=== PATIENT | female | born 1990 | race Caucasian/White ===

== ENCOUNTER 2018-01-25 01:57 | Inpatient (IN) | payer OTHER ==
[~2018-01-25] VITALS: Ht 157.5 cm; Wt 77.1 kg
[2018-01-25] MEDS ORDERED: FERR-15 PO (08:24)
[2018-01-25] MEDS ORDERED: PREN-380 PO (08:24)
[2018-01-25] MEDS ORDERED: CITRIC ACID/SODIUM CITRATE 30 ML UDC PO ONE (08:25)
--- NOTE | 2018-01-25 08:26 | NUR ---
PATIENT HAS BEEN SCREENED AND CATEGORIZED LOW NUTRITION RISK. PATIENT WILL BE SEEN WITHIN 7 DAYS OF ADMISSION. 01/31/[address]
[2018-01-25] MEDS: LACTATED RINGERS 1,000 ML IV SCH (09:05)
[2018-01-25 09:29] LABS: BASOPHILS % (AUTO) 0.4 % (0.0-2.0); EOSINOPHILS # (AUTO) 0.1 K/uL (0-0.4); EOSINOPHILS % (AUTO) 0.8 % (0.0-4.0); HEMATOCRIT 37.8 % (36-48); HEMOGLOBIN 12.5 g/dL (12.0-16.0); LYMPHOCYTES # (AUTO) 1.8 K/uL (2.5-16.5); LYMPHOCYTES % (AUTO) 19.5 % (20.5-51.1); MEAN CORPUSCULAR HEMOGLOBIN 29 pg (27-31); MEAN CORPUSCULAR HGB CONC 33 g/dL (33-37); MEAN CORPUSCULAR VOLUME 87.2 fL (80-94); MONOCYTES # (AUTO) 0.7 K/uL (0.8-1.0); MONOCYTES % (AUTO) 7.2 % (1.7-9.3); NEUTROPHILS # (AUTO) 6.7 K/uL (1.8-7.7); NEUTROPHILS % (AUTO) 72.1 % (42.2-75.2); PLATELET COUNT (AUTO) 201 K/uL (140-450); RED BLOOD CELL COUNT(AUTO) 4.33 MIL/uL (4.20-5.40); RED CELL DISTRIBUTION WIDTH 14.1 % (11.6-13.7); WHITE BLOOD COUNT (AUTO) 9.3 K/uL (4.8-10.8)
[2018-01-25 09:42] VITALS: BP 110/61
[2018-01-25] MEDS ORDERED: CITRIC ACID/SODIUM CITRATE 30 ML UDC ONE (10:22)
[2018-01-25] MEDS ORDERED: ePHEDrine 50 MG/ML VIAL IV ONE (10:28)
[2018-01-25] MEDS ORDERED: fentaNYL 0.05 MG/ML VIAL ONE (10:38)
[2018-01-25] MEDS ORDERED: MORPHINE PRES FREE 2 MG/2 ML 2 mL UD SYRINGE ONE (10:44)
[2018-01-25 11:11] LABS: APPEARANCE,URINE TURBID (CLEAR); BLOOD, URINE TRACE (NEGATIVE); COLOR,URINE YELLOW (YELLOW); UGLUCOSE NEGATIVE (NEGATIVE)
[2018-01-25 11:12] LABS: BILIRUBIN,URINE NEGATIVE (NEGATIVE); NITRITE, URINE NEGATIVE (NEGATIVE)
[2018-01-25] MEDS ORDERED: NALOXONE 0.4 MG/ML VIAL IVP PRN ×3 (11:15)
[2018-01-25] MEDS ORDERED: NALBUPHINE 10 MG/ML AMP IVP PRN (11:15)
[2018-01-25] MEDS ORDERED: ONDANSETRON 4 MG/2 ML VIAL IVP PRN ×2 (11:15)
[2018-01-25] MEDS ORDERED: KETOROLAC 60 MG/2 ML VIAL IM PRN (11:15)
[2018-01-25] MEDS ORDERED: diphenhydrAMINE 50 MG/ML VIAL IVP PRN (11:15)
[2018-01-25] MEDS ORDERED: KETOROLAC 30 MG/ML VIAL IVP PRN ×2 (11:25→13:40)
[2018-01-25 12:48] LABS: RBC,URINE 0-5 (RARE) /HPF (0-5)
[2018-01-25 12:49] LABS: WBC,URINE 6-15 (FEW) /HPF (0-5)
[2018-01-25 12:50] LABS: YEAST,URINE Few /HPF (None Seen)
[2018-01-25 12:51] LABS: LEUKOCYTE ESTERASE ,URINE 2+ (NEGATIVE); URINE AMORPHOUS URATE 1+ /HPF (None Seen)
[2018-01-25] MEDS ORDERED: OXYTOCIN 20 UNITS/LR PREMIX 1,000 ML IV ONE ×2 (13:00→18:46)
[2018-01-25] MEDS ORDERED: ONDANSETRON 4 MG/2 ML VIAL ONE (13:23)
[2018-01-25] MEDS ORDERED: OXYTOCIN 20 UNITS in LACTATED RINGERS 1,000 ML IV SCH (13:39)
[2018-01-25] MEDS ORDERED: MEASLES, MUMPS, AND RUBELLA 1 VIAL SQVAC PRN (13:40)
[2018-01-26] MEDS ORDERED: OXYTOCIN 20 UNITS/LR PREMIX 1,000 ML IV ONE (01:22)
[2018-01-26] MEDS ORDERED: HYDROmorphone 1 MG/ML AMP IVP PRN (05:00)
[2018-01-26] MEDS: KETOROLAC 30 MG/ML VIAL IVP PRN ×3 (05:06→22:15)
[2018-01-26 12:10] LABS: BASOPHILS # (AUTO) 0.1 K/uL (0.00-0.22); EOSINOPHILS # (AUTO) 0.1 K/uL (0-0.4); EOSINOPHILS % (AUTO) 0.9 % (0.0-4.0); LYMPHOCYTES % (AUTO) 7.8 % (20.5-51.1); MEAN CORPUSCULAR HEMOGLOBIN 29 pg (27-31); MEAN CORPUSCULAR HGB CONC 33 g/dL (33-37); MEAN CORPUSCULAR VOLUME 87.4 fL (80-94); MONOCYTES # (AUTO) 0.5 K/uL (0.8-1.0); MONOCYTES % (AUTO) 4.3 % (1.7-9.3); NEUTROPHILS # (AUTO) 10.7 K/uL (1.8-7.7); PLATELET COUNT (AUTO) 174 K/uL (140-450); RED BLOOD CELL COUNT(AUTO) 3.43 MIL/uL (4.20-5.40); RED CELL DISTRIBUTION WIDTH 14.3 % (11.6-13.7); WHITE BLOOD COUNT (AUTO) 12.4 K/uL (4.8-10.8)
[2018-01-26] MEDS ORDERED: ACETAMINOPHEN 325 MG TAB PO PRN (22:00)
[2018-01-27] MEDS ORDERED: INFLUENZA VIRUS VACCINE QUAD 0.5 ML SYR IMVAC PRN (05:00)
[2018-01-27] MEDS ORDERED: SODIUM PHOSPHATE 118 ML ENEM RC PRN (08:00)
[2018-01-27] MEDS ORDERED: oxyCODONE/APAP 5/325 MG 1 TAB TAB PO PRN (08:00)
[2018-01-27] MEDS: BISACODYL 5 MG TABEC PO SCH (09:04)
[2018-01-27] MEDS: DOCUSATE SODIUM 100 MG GELCAP PO SCH (09:04)
[2018-01-27] MEDS: SIMETHICONE 80 MG TAB.CHEW PO SCH ×3 (09:04→17:21)
[2018-01-27] MEDS: IBUPROFEN 600 MG TAB PO PRN ×2 (09:04→17:22)
[2018-01-28] MEDS: DOCUSATE SODIUM 100 MG GELCAP PO SCH (09:21)
[2018-01-28] MEDS: BISACODYL 5 MG TABEC PO SCH (09:21)
[2018-01-28] MEDS: SIMETHICONE 80 MG TAB.CHEW PO SCH (09:21)
[2018-01-28] MEDS: IBUPROFEN 600 MG TAB PO PRN ×2 (09:22→20:42)
[2018-01-28] MEDS: LACTATED RINGERS 1,000 ML IV SCH (16:48)
[2018-01-29] MEDS: DOCUSATE SODIUM 100 MG GELCAP PO SCH (08:51)
[2018-01-29] MEDS: IBUPROFEN 600 MG TAB PO PRN (08:51)
[2018-01-29] MEDS: SIMETHICONE 80 MG TAB.CHEW PO SCH (08:52)
[2018-01-29] MEDS: BISACODYL 5 MG TABEC PO SCH (08:52)
== END 2018-01-29 15:15 | disposition home or self-care (01) | DRG 540 ==
LOC: MLD 07:58 → MFCC 10:40
PROVIDERS: ADMIT Obstetrics & Gynecology; ATTEND Obstetrics & Gynecology
PROC: 10D00Z1 Extraction of Products of Conception, Low, Open Approach (ICD-10-PCS; principal; 2018-01-25 10:30)
PROC: 3E0234Z Introduction of Serum, Toxoid and Vaccine into Muscle, Percutaneous Approach (ICD-10-PCS; 2018-01-27)
PROC: 3E02340 Introduction of Influenza Vaccine into Muscle, Percutaneous Approach (ICD-10-PCS; 2018-01-27)
DX: O34.211 Maternal care for low transverse scar from previous cesarean delivery (principal); Z23 Encounter for immunization; Z37.0 Single live birth; Z3A.39 39 weeks gestation of pregnancy
CPT/HCPCS: 36415; 51702; 81001; 85025; 86592; 86886; 86900; 86901; 87081; 87086; 90658; 90715; J0690; J1200; J1885; J2270; J2405; J2590; J3010; J7060; J7120

== ENCOUNTER 2019-01-31 07:20 | Inpatient (IN) | payer OTHER ==
[~2019-01-31] VITALS: Ht 165.1 cm; Wt 75.7 kg
[~2019-01-31 07:20] MED LIST: FERR-15 PO; PREN-380 PO
[2019-01-31] MEDS ORDERED: LACTATED RINGERS 1,000 ML IV SCH (07:45)
--- NOTE | 2019-01-31 08:17 | NUR ---
PATIENT HAS BEEN SCREENED AND CATEGORIZED LOW NUTRITION RISK. PATIENT WILL BE SEEN WITHIN 7 DAYS OF ADMISSION. 02/06/[address]
[2019-01-31 09:00] LABS: BASOPHILS % (AUTO) 0.3 % (0.0-2.0); EOSINOPHILS # (AUTO) 0.2 K/uL (0-0.4); EOSINOPHILS % (AUTO) 1.8 % (0.0-4.0); HEMATOCRIT 38.1 % (36-48); HEMOGLOBIN 12.7 g/dL (12.0-16.0); LYMPHOCYTES # (AUTO) 1.9 K/uL (2.5-16.5); LYMPHOCYTES % (AUTO) 21.9 % (20.5-51.1); MEAN CORPUSCULAR HEMOGLOBIN 29 pg (27-31); MEAN CORPUSCULAR HGB CONC 34 g/dL (33-37); NEUTROPHILS # (AUTO) 5.8 K/uL (1.8-7.7); PLATELET COUNT (AUTO) 166 K/uL (140-450); RED BLOOD CELL COUNT(AUTO) 4.38 MIL/uL (4.20-5.40); RED CELL DISTRIBUTION WIDTH 15.1 % (11.6-13.7); WHITE BLOOD COUNT (AUTO) 8.9 K/uL (4.8-10.8)
[2019-01-31 09:27] LABS: APPEARANCE,URINE CLEAR (CLEAR); BILIRUBIN,URINE NEGATIVE (NEGATIVE); BLOOD, URINE NEGATIVE (NEGATIVE); COLOR,URINE YELLOW (YELLOW); LEUKOCYTE ESTERASE ,URINE NEGATIVE (NEGATIVE); NITRITE, URINE POSITIVE (NEGATIVE); UGLUCOSE NEGATIVE (NEGATIVE)
[2019-01-31 09:41] LABS: RBC,URINE 0-5 /HPF (0-5); WBC,URINE 0-5 /HPF (0-5)
[2019-01-31] MEDS ORDERED: INFLUENZA VACCINE QUAD 0.5 ML SYR IMVAC PRN (09:50)
[2019-01-31 10:52] VITALS: BP 109/71
[2019-01-31] MEDS ORDERED: MEPERIDINE 25 MG/ML SYR IVP PRN (11:05)
[2019-01-31] MEDS ORDERED: NALOXONE 0.4 MG/ML VIAL IVP PRN ×3 (11:05)
[2019-01-31] MEDS ORDERED: OXYTOCIN 20 UNITS in LACTATED RINGERS 1,000 ML IV SCH (11:05)
[2019-01-31] MEDS ORDERED: HYDROmorphone 1 MG/ML AMP IVP PRN ×2 (11:05→13:45)
[2019-01-31] MEDS ORDERED: NALBUPHINE 10 MG/ML AMP IVP PRN (11:05)
[2019-01-31] MEDS ORDERED: diphenhydrAMINE 50 MG/ML VIAL IVP PRN ×2 (11:05)
[2019-01-31] MEDS ORDERED: ONDANSETRON 4 MG/2 ML VIAL IVP PRN ×2 (11:05)
[2019-01-31] MEDS ORDERED: MEASLES, MUMPS, AND RUBELLA 1 VIAL SQVAC PRN (13:45)
[2019-01-31] MEDS ORDERED: KETOROLAC 30 MG/ML VIAL IVP PRN (13:45)
[2019-01-31] MEDS: OXYTOCIN 20 UNITS in LACTATED RINGERS 1,000 ML IV SCH (19:49)
--- NOTE | 2019-01-31 21:42 | NUR ---
2100 INSTRUCTED INCENTIVE SPIROMETER TO PATIENT. PT DID 1000CC X 10 BREATHS. ENCOURAGED HER TO DO IT EVERY HOUR WHILE SHE IS AWAKE
[2019-02-01] MEDS: KETOROLAC 30 MG/ML VIAL IM/IVP SCH ×2 (00:04→11:12)
[2019-02-01] MEDS ORDERED: OXYTOCIN 20 UNITS/LR PREMIX 1,000 ML IV ONE (02:25)
[2019-02-01] MEDS: OXYTOCIN 20 UNITS in LACTATED RINGERS 1,000 ML IV SCH (03:13)
[2019-02-01 11:52] LABS: BASOPHILS # (AUTO) 0.1 K/uL (0.00-0.22); BASOPHILS % (AUTO) 0.6 % (0.0-2.0); EOSINOPHILS # (AUTO) 0.1 K/uL (0-0.4); HEMATOCRIT 37.5 % (36-48); HEMOGLOBIN 12.5 g/dL (12.0-16.0); LYMPHOCYTES # (AUTO) 1.4 K/uL (2.5-16.5); LYMPHOCYTES % (AUTO) 12.4 % (20.5-51.1); MEAN CORPUSCULAR HEMOGLOBIN 29 pg (27-31); MEAN CORPUSCULAR HGB CONC 33 g/dL (33-37); MEAN CORPUSCULAR VOLUME 87.5 fL (80-94); MONOCYTES # (AUTO) 0.8 K/uL (0.8-1.0); MONOCYTES % (AUTO) 7.2 % (1.7-9.3); NEUTROPHILS # (AUTO) 8.7 K/uL (1.8-7.7); NEUTROPHILS % (AUTO) 78.8 % (42.2-75.2); PLATELET COUNT (AUTO) 162 K/uL (140-450); RED BLOOD CELL COUNT(AUTO) 4.28 MIL/uL (4.20-5.40)
[2019-02-01] MEDS: ACETAMINOPHEN 325 MG TAB PO PRN (22:01)
[2019-02-02] MEDS: ACETAMINOPHEN 325 MG TAB PO PRN (06:19)
[2019-02-02] MEDS ORDERED: SODIUM PHOSPHATE 118 ML ENEM RC PRN (09:00)
[2019-02-02] MEDS: SIMETHICONE 80 MG TAB.CHEW PO SCH ×3 (09:04→17:36)
[2019-02-02] MEDS: DOCUSATE SODIUM 100 MG GELCAP PO SCH (09:05)
[2019-02-02] MEDS: BISACODYL 5 MG TABEC PO SCH (09:05)
[2019-02-02] MEDS: IBUPROFEN 600 MG TAB PO PRN (17:36)
[2019-02-03] MEDS: IBUPROFEN 600 MG TAB PO PRN (08:37)
[2019-02-03] MEDS: BISACODYL 5 MG TABEC PO SCH (08:38)
[2019-02-03] MEDS: DOCUSATE SODIUM 100 MG GELCAP PO SCH (08:38)
[2019-02-03] MEDS: SIMETHICONE 80 MG TAB.CHEW PO SCH (08:39)
[2019-02-03] MEDS ORDERED: FERR325E14 PO (14:18)
[2019-02-03] MEDS ORDERED: IBUP-1842 PO (14:20)
== END 2019-02-03 17:23 | disposition home or self-care (01) | DRG 540 ==
LOC: MLD 07:20 → MFCC 10:46
PROVIDERS: ADMIT Obstetrics & Gynecology; ATTEND Obstetrics & Gynecology
PROC: 0UB70ZZ Excision of Bilateral Fallopian Tubes, Open Approach (ICD-10-PCS; 2019-01-31)
PROC: 10D00Z1 Extraction of Products of Conception, Low, Open Approach (ICD-10-PCS; principal; 2019-01-31 10:00)
DX: O34.211 Maternal care for low transverse scar from previous cesarean delivery (principal); O69.81X0 Labor and delivery complicated by cord around neck, without compression, not applicable or unspecified; Z37.0 Single live birth; Z30.2 Encounter for sterilization; Z3A.38 38 weeks gestation of pregnancy
CPT/HCPCS: 36415; 51702; 81001; 85025; 86592; 86886; 86900; 86901; 87081; 87086; 87186; 88302; 88304; J0690; J1885; J2590; J7060; J7120